=== PATIENT | female | born 1980 | race Caucasian/White ===

== ENCOUNTER 2017-05-21 23:14 | Inpatient (IN) | payer MEDICAID ==
[2017-05-22] MEDS ORDERED: CARBOPROST 250 MCG INJ IM (03:30)
[2017-05-22] MEDS ORDERED: METHYLERGONOVINE 0.2 MG INJ IM (03:30)
[2017-05-22] MEDS ORDERED: HYDROCODONE/APAP (5/325) TAB PO ×2 (03:30→11:00)
[2017-05-22] MEDS ORDERED: BUTORPHANOL 2 MG INJ IV ×2 (03:30)
[2017-05-22] MEDS ORDERED: LIDOCAINE 1% (MPF) 30 ML INJ INJ (03:30)
[2017-05-22] MEDS ORDERED: OXYTOCIN 30 UNITS/LR 500 ML IV ×3 (03:30→10:48)
[2017-05-22] MEDS ORDERED: MISOPROSTOL 200 MCG TAB PR (03:30)
[2017-05-22] MEDS ORDERED: IBUPROFEN 600 MG TAB PO (03:30)
[2017-05-22] MEDS: LACTATED RINGER'S 1,000 ML IV ×2 (03:57→04:54)
[2017-05-22 04:19] LABS: ADD MAN DIFF? NO
[2017-05-22 04:22] LABS: BASOPHILS % 0.4 % (0.0-2.0); EOSINOPHILS # 0.5 10^3/ul (0.0-0.5); EOSINOPHILS % 5.1 % (0.0-7.0); HEMOGLOBIN 12.7 g/dl (12.0-16.0); LYMPHOCYTES # 2.7 10^3/ul (0.8-2.9); LYMPHOCYTES % 27.6 % (15.0-51.0); MEAN CORPUSCULAR HEMOGLOBIN 32.8 pg (29.0-33.0); MEAN CORPUSCULAR HGB CONC 35.3 g/dl (32.0-37.0); MONOCYTE # 0.4 10^3/ul (0.3-0.9); MONOCYTES % 4.1 % (0.0-11.0); NEUTROPHIL # 6.2 10^3/ul (1.6-7.5); NEUTROPHILS % 62.6 % (39.0-77.0); PLATELET COUNT 161 10^3/UL (140-415); RED BLOOD COUNT 3.87 10^6/ul (4.20-5.40); RED CELL DISTRIBUTION WIDTH 12.8 % (11.5-14.5)
[2017-05-22 04:22] LABS: WHITE BLOOD COUNT 9.9 10^3/ul (4.8-10.8)
[2017-05-22 04:37] LABS: INR 0.81; PROTIME 11.2 Sec (11.9-14.9); PT RATIO 0.9
[2017-05-22 04:38] LABS: PARTIAL THROMBOPLASTIN TIME 29.5 Sec (25.0-35.0)
[2017-05-22] MEDS ORDERED: FENTAnyl 2MCG/ML-ROPIV 0.2% 100 ML (04:51)
[2017-05-22] MEDS ORDERED: DIPHENHYDRAMINE 50 MG INJ IV (06:00)
[2017-05-22] MEDS ORDERED: EPHEDrine SULFATE 50 MG/5 ML SYG IV (06:00)
[2017-05-22] MEDS ORDERED: FENTAnyl 2MCG/ML-ROPIV 0.2% 100 ML BAG EPI (06:00)
[2017-05-22] MEDS ORDERED: NALOXONE (0.4 MG/ML) INJ IV (06:00)
[2017-05-22] MEDS ORDERED: ONDANSETRON 4 MG INJ IV ×2 (06:00→11:00)
[2017-05-22] MEDS: OXYTOCIN 30 UNITS/LR 500 ML IV ×2 (09:24→09:40)
[2017-05-22] MEDS ORDERED: DIBUCAINE 1% 30 GM OINT PR (11:00)
[2017-05-22] MEDS ORDERED: OXYCODONE/ASPIRIN (4.88/325) TAB PO ×2 (11:00)
[2017-05-22] MEDS ORDERED: ACETAMINOPHEN 325 MG TAB PO (11:00)
[2017-05-22] MEDS: IBUPROFEN 600 MG TAB PO ×3 (13:01→23:33)
[2017-05-22 13:24] LABS: HEPATITIS B SURFACE ANTIGEN NEGATIVE (NEGATIVE)
[2017-05-22] MEDS: BENZOCAINE 20% 56 ML SPRAY TOP (17:01)
[2017-05-22] MEDS: WITCH HAZEL/GLYCERIN PAD PR (17:02)
[2017-05-22] MEDS: LANOLIN 7 GM TUBE TOP (17:02)
[2017-05-22] MEDS: SENNA/DOCUSATE NA (8.6MG/50MG) TAB PO (21:13)
[2017-05-22 21:20] LABS: RAPID PLASMA REAGIN NONREACTIVE (NR)
[2017-05-23] MEDS: HYDROCODONE/APAP (5/325) TAB PO (03:49)
[2017-05-23] MEDS: IBUPROFEN 600 MG TAB PO ×3 (05:35→18:28)
[2017-05-23 09:16] LABS: ADD MAN DIFF? NO
[2017-05-23 09:19] LABS: BASOPHIL # 0.1 10^3/ul (0.0-0.1); BASOPHILS % 0.5 % (0.0-2.0); EOSINOPHILS # 0.6 10^3/ul (0.0-0.5); EOSINOPHILS % 5.5 % (0.0-7.0); HEMATOCRIT 34.5 % (37.0-47.0); HEMOGLOBIN 12.1 g/dl (12.0-16.0); LYMPHOCYTES # 3.6 10^3/ul (0.8-2.9); LYMPHOCYTES % 32.4 % (15.0-51.0); MEAN CORPUSCULAR HEMOGLOBIN 33.2 pg (29.0-33.0); MEAN CORPUSCULAR HGB CONC 35.1 g/dl (32.0-37.0); MEAN CORPUSCULAR VOLUME 94.5 fl (82.0-101.0); MEAN PLATELET VOLUME 11.5 fl (7.4-10.4); MONOCYTE # 0.5 10^3/ul (0.3-0.9); MONOCYTES % 4.8 % (0.0-11.0); NEUTROPHIL # 6.2 10^3/ul (1.6-7.5); NEUTROPHILS % 56.4 % (39.0-77.0); PLATELET COUNT 151 10^3/UL (140-415); RED BLOOD COUNT 3.65 10^6/ul (4.20-5.40); RED CELL DISTRIBUTION WIDTH 13.2 % (11.5-14.5)
[2017-05-23] MEDS: SENNA/DOCUSATE NA (8.6MG/50MG) TAB PO ×2 (09:19→20:58)
[2017-05-23] MEDS: INFLUENZA VIRUS VACCINE 0.5 ML (DISPENSING) IM* (09:22)
[2017-05-24] MEDS: IBUPROFEN 600 MG TAB PO ×3 (00:20→12:27)
[2017-05-24] MEDS: MEASLES,MUMPS,RUBELLA VACCINE INJ SC* (09:00)
[2017-05-24] MEDS: SENNA/DOCUSATE NA (8.6MG/50MG) TAB PO (09:57)
[2017-05-24] MEDS: DIPHTH/TET/ACEL PERTUSS (ADULT) 0.5 ML VIAL IM* (12:33)
== END 2017-05-24 14:30 | disposition home or self-care (01) | DRG 775 ==
LOC: OBT 23:14 → L-D 23:15 → PP1 05-22 10:55
PROVIDERS: Obstetrics & Gynecology
PROC: 10E0XZZ Delivery of Products of Conception, External Approach (ICD-10-PCS; principal; 2017-05-22)
PROC: 0HQ9XZZ Repair Perineum Skin, External Approach (ICD-10-PCS; 2017-05-22)
PROC: 4A1HXCZ Monitoring of Products of Conception, Cardiac Rate, External Approach (ICD-10-PCS; 2017-05-22)
PROC: 3E0234Z Introduction of Serum, Toxoid and Vaccine into Muscle, Percutaneous Approach (ICD-10-PCS; 2017-05-23)
PROC: 3E0234Z Introduction of Serum, Toxoid and Vaccine into Muscle, Percutaneous Approach (ICD-10-PCS; 2017-05-24)
DX: O70.0 First degree perineal laceration during delivery (principal); O69.81X0 Labor and delivery complicated by cord around neck, without compression, not applicable or unspecified; Z37.0 Single live birth; Z3A.39 39 weeks gestation of pregnancy; Z23 Encounter for immunization
CPT/HCPCS: 62319; 85025; 85610; 85730; 86592; 86900; 86901; 87340; 90686; 90715